=== PATIENT | male | born 1990 | race Caucasian/White ===

== ENCOUNTER → 2018-05-08 | Outpatient (CLI) | payer MEDICAID | END | disposition home or self-care (01) | LOC: RAD 11:15 | DX: R76.11 Nonspecific reaction to tuberculin skin test without active tuberculosis (principal) ==

== ENCOUNTER 2018-08-08 17:34 | Emergency (ER) | payer BC, OTHER ==
[2018-08-08] MEDS: SOD CHLORIDE 0.9% 1,000 ML IV ×2 (18:15→19:45)
[2018-08-08 18:17] LABS: ADD MAN DIFF? NO
[2018-08-08 18:21] LABS: WHITE BLOOD COUNT 7.7 10^3/ul (4.8-10.8)
[2018-08-08 18:21] LABS: BASOPHILS % 0.1 % (0.0-2.0); EOSINOPHILS % 0.1 % (0.0-7.0); HEMATOCRIT 41.6 % (42.0-52.0); HEMOGLOBIN 14.1 g/dl (14.0-18.0); LYMPHOCYTES # 2.1 10^3/ul (0.8-2.9); LYMPHOCYTES % 27.9 % (15.0-51.0); MEAN CORPUSCULAR HEMOGLOBIN 28.6 pg (29.0-33.0); MEAN CORPUSCULAR HGB CONC 33.9 g/dl (32.0-37.0); MEAN CORPUSCULAR VOLUME 84.4 fl (82.0-101.0); MEAN PLATELET VOLUME 8.5 fl (7.4-10.4); MONOCYTE # 0.7 10^3/ul (0.3-0.9); MONOCYTES % 8.5 % (0.0-11.0); NEUTROPHIL # 4.8 10^3/ul (1.6-7.5); NEUTROPHILS % 63.1 % (39.0-77.0); PLATELET COUNT 276 10^3/UL (140-415); RED BLOOD COUNT 4.93 10^6/ul (4.70-6.10); RED CELL DISTRIBUTION WIDTH 14.8 % (11.5-14.5)
[2018-08-08] MEDS: ACETAMINOPHEN 325 MG TAB PO (18:39)
[2018-08-08] MEDS: ONDANSETRON 4 MG INJ IV (18:39)
[2018-08-08] MEDS: LIDOCAINE/MYLANTA 40 ML BTL PO (19:02)
[2018-08-08 19:11] LABS: INR 0.98; PROTIME 13.1 Sec (11.9-14.9)
[2018-08-08 19:14] LABS: ALANINE AMINOTRANSFERASE 64 IU/L (13-69); ALBUMIN 4.3 g/dl (3.3-4.9); ALBUMIN/GLOBULIN RATIO 1.16; ALKALINE PHOSPHATASE 115 IU/L (42-121); ANION GAP 19 (8-16); ASPARTATE AMINO TRANSFERASE 79 IU/L (15-46); BILIRUBIN,INDIRECT 0.4 mg/dl (0-1.1); BILIRUBIN,TOTAL 0.4 mg/dl (0.2-1.3); BLOOD UREA NITROGEN 6 mg/dl (7-20); CALCIUM 8.3 mg/dl (8.4-10.2); CARBON DIOXIDE 27 mmol/L (21-31); CHLORIDE 104 mmol/L (97-110); GLUCOSE 108 mg/dl (70-220); POTASSIUM 4.2 mmol/L (3.5-5.1); SODIUM 146 mmol/L (135-144)
[2018-08-08 19:34] LABS: AMPHETAMINE/METHAMPHETAMINE Negative (NEGATIVE); BARBITURATES Negative (NEGATIVE); BENZODIAZEPINES Negative (NEGATIVE); CANNABINOIDS Negative (NEGATIVE); COCAINE Negative (NEGATIVE); OPIATES Negative (NEGATIVE)
== END 2018-08-08 20:59 | disposition home or self-care (01) ==
LOC: E/R 17:34
DX: F10.129 Alcohol abuse with intoxication, unspecified (principal); I10 Essential (primary) hypertension; G40.409 Other generalized epilepsy and epileptic syndromes, not intractable, without status epilepticus; R40.2142 Coma scale, eyes open, spontaneous, at arrival to emergency department; R40.2242 Coma scale, best verbal response, confused conversation, at arrival to emergency department; R40.2362 Coma scale, best motor response, obeys commands, at arrival to emergency department
CPT/HCPCS: 36415; 70450; 71045; 80053; 80307; 82962; 85025; 85610; 96374; 99285-25

== ENCOUNTER 2018-08-09 11:28 | Emergency (ER) | payer BC ==
[2018-08-09 14:34] LABS: ADD MAN DIFF? NO
[2018-08-09 14:35] LABS: WHITE BLOOD COUNT 8.2 10^3/ul (4.8-10.8)
[2018-08-09 14:35] LABS: BASOPHILS % 0.1 % (0.0-2.0); EOSINOPHILS % 0.1 % (0.0-7.0); HEMATOCRIT 42.3 % (42.0-52.0); HEMOGLOBIN 14.3 g/dl (14.0-18.0); LYMPHOCYTES # 2.1 10^3/ul (0.8-2.9); LYMPHOCYTES % 25.2 % (15.0-51.0); MEAN CORPUSCULAR HEMOGLOBIN 28.9 pg (29.0-33.0); MEAN CORPUSCULAR HGB CONC 33.8 g/dl (32.0-37.0); MEAN CORPUSCULAR VOLUME 85.6 fl (82.0-101.0); MEAN PLATELET VOLUME 9.3 fl (7.4-10.4); MONOCYTE # 0.5 10^3/ul (0.3-0.9); MONOCYTES % 6.1 % (0.0-11.0); NEUTROPHIL # 5.6 10^3/ul (1.6-7.5); NEUTROPHILS % 68.3 % (39.0-77.0); PLATELET COUNT 264 10^3/UL (140-415); RED BLOOD COUNT 4.94 10^6/ul (4.70-6.10); RED CELL DISTRIBUTION WIDTH 14.8 % (11.5-14.5)
[2018-08-09 14:42] LABS: ALANINE AMINOTRANSFERASE 72 IU/L (13-69); ALBUMIN 4.4 g/dl (3.3-4.9); ALBUMIN/GLOBULIN RATIO 1.12; ALKALINE PHOSPHATASE 121 IU/L (42-121); ANION GAP 19 (8-16); ASPARTATE AMINO TRANSFERASE 86 IU/L (15-46); BILIRUBIN,INDIRECT 0.4 mg/dl (0-1.1); BILIRUBIN,TOTAL 0.4 mg/dl (0.2-1.3); BLOOD UREA NITROGEN 5 mg/dl (7-20); CALCIUM 8.6 mg/dl (8.4-10.2); CARBON DIOXIDE 28 mmol/L (21-31); CHLORIDE 104 mmol/L (97-110); CREATININE 0.56 mg/dl (0.61-1.24); GLUCOSE 109 mg/dl (70-220); POTASSIUM 4.1 mmol/L (3.5-5.1); SODIUM 147 mmol/L (135-144); TOTAL PROTEIN 8.3 g/dl (6.1-8.1)
[2018-08-09 14:48] LABS: ACETAMINOPHEN < 10.0 ug/ml (10.0-30.0); SALICYLATE < 1.0 mg/dl (5.0-30.0)
== END 2018-08-09 15:42 | disposition home or self-care (01) ==
LOC: E/R 11:28
DX: F10.920 Alcohol use, unspecified with intoxication, uncomplicated (principal); R68.2 Dry mouth, unspecified; Z87.891 Personal history of nicotine dependence
CPT/HCPCS: 80053; 80307; 85025; 99283